=== PATIENT | male | born 1960 | race Caucasian/White ===

== ENCOUNTER 2020-05-19 05:57 | Day surgery (SDC) | payer OTHER ==
[~2020-05-19] VITALS: Ht 175.3 cm; Wt 86.0 kg
[~2020-05-19 05:57] MED LIST: SODIUM CHLORIDE 0.9% 1,000 ML ONE
[2020-05-19] MEDS ORDERED: SODIUM CHLORIDE 0.9% 1,000 ML IV ONE (06:30)
[2020-05-19] MEDS ORDERED: FentaNYL CITRATE-PF 100 MCG/2 ML VIAL ONE (07:28)
[2020-05-19] MEDS ORDERED: MIDAZOLAM HCL 2 MG/2 ML VIAL ONE (07:28)
[2020-05-19] MEDS ORDERED: MethylPREDNISolone SOD SUCC 125 MG/2 ML VIAL IVP ONE (08:30)
[2020-05-19] MEDS ORDERED: MethylPREDNISolone SOD SUCC 125 MG/2 ML VIAL ONE (08:45)
[2020-05-19] MEDS ORDERED: LIDOCAINE 4% 50 ML SOLUTION ONE (17:24)
[2020-05-19] MEDS ORDERED: ALBUTEROL SULFATE 2.5 MG/0.5 ML NEB SOLUTION NEB ONE (17:24)
[2020-05-19] MEDS ORDERED: BENZOCAINE 20% 50 MCG/SPRAY 57 GM ONE (17:24)
[2020-05-19] MEDS ORDERED: LIDOCAINE 2% 30 ML JELLY ONE (17:24)
[2020-05-19] MEDS ORDERED: OXYGEN THERAPY IH SCH (20:00)
== END 2020-05-19 10:15 | disposition home or self-care (01) ==
LOC: SURGERY 05:57
PROVIDERS: ATTEND Internal Medicine Critical Care Medicine
DX: J38.4 Edema of larynx (principal); B37.0 Candidal stomatitis; F17.210 Nicotine dependence, cigarettes, uncomplicated; Z72.89 Other problems related to lifestyle; J44.9 Chronic obstructive pulmonary disease, unspecified; Z87.01 Personal history of pneumonia (recurrent); M16.10 Unilateral primary osteoarthritis, unspecified hip; M17.10 Unilateral primary osteoarthritis, unspecified knee
CPT/HCPCS: 31623; 31624; 71045; 87015; 87070; 87077; 87101; 87186; 87205; 87206; 87220; 87635; 88108; 88312; J2250; J2930; J3010; J7030; J7613; Z7610

== ENCOUNTER 2020-12-25 06:04 | Day surgery (SDC) | payer OTHER ==
[2020-12-22 08:58] LABS: COVID AG,FIA SOURCE NASOPHARYNGEAL
[~2020-12-25] VITALS: Ht 177.8 cm; Wt 86.4 kg
[~2020-12-25 06:04] MED LIST changes: +SODIUM CHLORIDE 0.9% 1,000 ML IV ONE; -SODIUM CHLORIDE 0.9% 1,000 ML ONE
[2020-12-25] MEDS ORDERED: SODIUM CHLORIDE 0.9% 1,000 ML ONE (06:27)
[2020-12-25] MEDS ORDERED: OMEP20CA13 PO (06:45)
[2020-12-25] MEDS ORDERED: FLUT220HFA PO (06:45)
[2020-12-25] MEDS ORDERED: GABA-533 PO (06:45)
[2020-12-25] MEDS ORDERED: METO25 PO (06:45)
[2020-12-25] MEDS ORDERED: MONT10TA32 PO (06:45)
[2020-12-25] MEDS ORDERED: FentaNYL CITRATE PF 100 MCG/2 ML VIAL ONE (06:52)
[2020-12-25] MEDS ORDERED: MIDAZOLAM HCL 2 MG/2 ML VIAL ONE (06:52)
[2020-12-25] MEDS ORDERED: MethylPREDNISolone SOD SUCC 125 MG/2 ML VIAL IVP ONE (09:00)
[2020-12-25] MEDS ORDERED: BENZOCAINE 20% 50 MCG/SPRAY 57 GM ONE (16:27)
[2020-12-25] MEDS ORDERED: LIDOCAINE 2% 30 ML JELLY ONE (16:27)
[2020-12-25] MEDS ORDERED: LIDOCAINE 4% 50 ML SOLUTION ONE (16:27)
[2020-12-25] MEDS ORDERED: ALBUTEROL SULFATE 2.5 MG/0.5 ML NEB SOLUTION NEB ONE (16:27)
[2020-12-25] MEDS ORDERED: OXYGEN THERAPY IH SCH (20:00)
== END 2020-12-25 10:15 | disposition home or self-care (01) ==
LOC: SURGERY 06:04
PROVIDERS: ATTEND Internal Medicine Critical Care Medicine
DX: J38.4 Edema of larynx (principal); B37.0 Candidal stomatitis; F17.210 Nicotine dependence, cigarettes, uncomplicated; I10 Essential (primary) hypertension; Z87.01 Personal history of pneumonia (recurrent)
CPT/HCPCS: 31623; 31624; 71045; 87015; 87070; 87077; 87101; 87186; 87205; 87206; 87220; 87426; 88108; 88184; 88185; 88312; C9803; J2250; J2930; J3010; J7030; J7613; Z7610

== ENCOUNTER 2022-05-06 05:16 | Day surgery (SDC) | payer OTHER ==
[2022-05-03 09:35] LABS: COVID AG,FIA SOURCE NASOPHARYNGEAL
[~2022-05-06 05:16] MED LIST changes: +BUDE10.27 IH; +FLUT220HFA PO; +GABA-533 PO; +METO25 PO; +MONT-40 PO; +OMEP20CA13 PO; +TIOT185 IH; +VIT1TABL66 PO
[2022-05-06] MEDS ORDERED: SODIUM CHLORIDE 0.9% 1,000 ML ONE (06:36)
[2022-05-06] MEDS ORDERED: FentaNYL CITRATE PF 100 MCG/2 ML VIAL ONE (07:50)
[2022-05-06] MEDS ORDERED: MIDAZOLAM HCL 5 MG/ML VIAL ONE (07:50)
[2022-05-06] MEDS ORDERED: SODIUM CHLORIDE 0.9% 10 ML ONE (08:21)
[2022-05-06] MEDS ORDERED: MethylPREDNISolone SOD SUCC 125 MG/2 ML VIAL IVP ONE (09:00)
[2022-05-06] MEDS ORDERED: MethylPREDNISolone SOD SUCC 125 MG/2 ML VIAL ONE (09:01)
[2022-05-06] MEDS ORDERED: BENZOCAINE 20% 50 MCG/SPRAY 57 GM ONE (12:08)
[2022-05-06] MEDS ORDERED: LIDOCAINE 2% 11 ML JELLY ONE (12:08)
[2022-05-06] MEDS ORDERED: LIDOCAINE 4% 50 ML SOLUTION ONE (12:08)
[2022-05-06] MEDS ORDERED: OXYGEN THERAPY IH SCH (20:00)
== END 2022-05-06 10:55 | disposition home or self-care (01) ==
LOC: SURGERY 05:16
PROVIDERS: ATTEND Internal Medicine Critical Care Medicine
DX: J38.4 Edema of larynx (principal); B37.0 Candidal stomatitis; J39.8 Other specified diseases of upper respiratory tract; Z87.01 Personal history of pneumonia (recurrent); I25.2 Old myocardial infarction; Z98.890 Other specified postprocedural states; J44.9 Chronic obstructive pulmonary disease, unspecified; Z79.899 Other long term (current) drug therapy; Z96.659 Presence of unspecified artificial knee joint
CPT/HCPCS: 87426; 31623; 88112; 87206; 87101; 87220; 87070; 88305; 88312; 31624; 71045; 87015; C9803; J3010; J2930; J2250; Q9967; J7030; Z7610